=== PATIENT | male | born 1935 | race Caucasian/White ===

== ENCOUNTER 2021-11-05 11:39 | Day surgery (SDC) | payer OTHER, SELFPAY ==
--- NOTE | 2021-11-04 18:14 | W.PREOPHP ---
Assessment and Plan Assessment and plan (1) Posterior subcapsular age-related cataract, right eye: Status: Acute Assessment and plan: Assessment: Visually significant cataract of the right eye. Plan: Cataract extraction with intraocular lens implantation (2) Cortical cataract of right eye: Status: Acute Assessment and plan: Assessment: Visually significant cataract of the right eye. Plan: Cataract extraction with intraocular lens implantation (3) Nuclear sclerotic cataract of right eye: Status: Acute Assessment and plan: Assessment: Visually significant cataract of the right eye. Plan: Cataract extraction with intraocular lens implantation History of Present Illness History of Present Illness Chief Complaint: Progressive decreased vision right eye Narrative: The patient is an 86-year-old male with history of progressive decreased vision in his right eye over the past several years. He notes he feels like he is looking through a dirty windshield in his right eye. He often closes his right eyes to see clearly with the left Review of Systems All systems reviewed & are unremarkable except as noted in HPI and below PFSH All Active Problems (Updated 11/05/21 @ 12:28 by Lashaun Hale) Nuclear sclerotic cataract of right eye (Acute) Cortical cataract of right eye (Acute) Posterior subcapsular age-related cataract, right eye (Acute) Medical History (Updated 11/05/21 @ 12:28 by Lashaun Hale) BPH (benign prostatic hyperplasia) Cataract HTN (hypertension) Hx of small bowel obstruction 1999 Surgical History (Updated 11/05/21 @ 12:28 by Lashaun Hale) History of total left knee replacement (TKR) 10/08/21 Social History Smoking/Tobacco Use Status: Never Smoking risk assessment performed?: Yes Alcohol Intake: never Drug use: Never Substance use type: does not use Do you feel safe at home: Yes Do you feel safe in your relationship?: Yes Meds Allergies and Home Medications Allergies Allergy/AdvReac Type Severity Reaction Status Date / Time zolpidem Allergy Intermediate Other (See Unverified 11/05/21 12:30 Comment) Home Medications Medication Instructions Recorded Confirmed Type amlodipine 5 mg tablet 5 mg PO DAILY 11/02/21 11/05/21 History hydrochlorothiazide 25 mg tablet 25 mg PO DAILY 11/02/21 11/05/21 History lisinopril 20 mg tablet 20 mg PO DAILY 11/02/21 11/05/21 History tamsulosin 0.4 mg capsule 0.4 mg PO DIRECTED 11/02/21 11/05/21 History Exam Eyes Other: Corrected visual acuity is 2400 right eye, 20/25 left eye. Intraocular pressure is 9 OD, 15 OS. Extraocular motility is normal. Slit-lamp examination reveals a moderate nuclear and cortical cataract in the right eye with severe posterior subcapsular cataract in the right eye as well. The left eye shows mild cortical and nuclear cataract. Funduscopic examination reveals disc cupping of 0.2 OU with normal vessels, macula, peripheral retina and vitreous. Resp Auscultation: clear to auscultation bilaterally Cardio Rate: regular rate Rhythm: regular rhythm
--- NOTE | 2021-11-05 05:31 | ANES.PREOP_ITS ---
General Info Date of Service Date Performed: 11/05/21 Height: 5 ft 7 in Weight: 89.811 kg Body Mass Index (BMI): 31.0 Surgical Procedure: Operation Date: 11/05/21 13:40 Proposed Procedure Side Surgeon p Cataract Extraction with IOL Implant Right David Menezes MD Meds Allergies and Home Medications Allergies Allergy/AdvReac Type Severity Reaction Status Date / Time zolpidem Allergy Intermediate Other (See Unverified 11/05/21 12:30 Comment) Home Medication Medication Instructions Recorded amlodipine 5 mg tablet 5 mg PO DAILY 11/02/21 hydrochlorothiazide 25 mg tablet 25 mg PO DAILY 11/02/21 lisinopril 20 mg tablet 20 mg PO DAILY 11/02/21 tamsulosin 0.4 mg capsule 0.4 mg PO DIRECTED 11/02/21 Current Visit Medications: Current Medications Generic Name Dose Route Start Last Admin Trade Name Freq PRN Reason Stop Dose Admin Acetaminophen 1,000 mg 11/05/21 06:00 Acetaminophen 500 Mg Tab PO Q4H PRN PRN Miscellaneous Medication 0 ml 11/05/21 06:00 Prednisolone 1%, Moxifloxacin 0.5%, Nepafenac 0.1% 5ml Btl OD DIRECTED [facility] Miscellaneous Medication 0 ml 11/05/21 06:00 Tropicam./Phenyleph. (1/2.5%) 5 Ml Btl OD DIRECTED [facility] Tetracaine HCl 0 ml 11/05/21 06:00 Tetracaine 0.5% 4 Ml Btl OD DIRECTED [facility] PFSH Active Problems Active Problems: Problem Status Onset Code Posterior subcapsular age-related cataract, right eye H25.041 Cortical cataract of right eye H26.9 Nuclear sclerotic cataract of right eye H25.11 Medical History Medical History BPH (benign prostatic hyperplasia) Cataract HTN (hypertension) Surgical History Surgical History (Updated 11/05/21 @ 12:28 by Lashaun Hale) History of total left knee replacement (TKR) 10/08/21 Tobacco Smoking/Tobacco Use Status: Never Alcohol Alcohol Intake: never Substance Use Substance use: Never Substance use type: does not use Vital Signs and Lab Results Vital Signs Most Recent Vital Signs in EMR: Temp Pulse Resp BP Pulse Ox 36.8 C 63 16 139/82 95 09/12/22 12:32 11/05/21 12:32 11/05/21 12:32 11/05/21 12:32 11/05/21 12:32 Lab Results Blood Type / Crossmatch: No Data to Display Complete Blood Count: No Data to Display Complete Metabolic Panel: No Data to Display Liver Function Panel: No Data to Display Coagulation Panel: No Data to Display Cardiac Panel: No Data to Display Arterial Blood Gas: No Data to Display Venous Blood Gas: No Data to Display Pancreas Panel: No Data to Display Thyroid Panel: No Data to Display Infectious Disease: No Data to Display Blood Cultures: No Data to Display Toxicology Panel: No Data to Display Anesthesia Assessment and Plan Anesthesia History Personal History: No History of Anesthesia Complications Family History: No Family History of Anesthesia Complications Exercise Tolerance Exercise Tolerance: Metabolic Equivalents>4 Cardiac & Pulmonary Exam Cardiac Exam: Normal S1/S2 Heart Sounds Pulmonary Exam: Clear Bilateral Breath Sounds Implantable Cardiac Device Does patient have a Pacemaker or an ICD?: No Airway Exam Known Difficult Airway: No Mallampati Class: 2 Mouth Opening: Normal (> 3cm) Thyromental Distance: Greater than 3 cm Neck Range of Motion: Full ROM Neck Circumference: Normal Teeth Condition: Edentulous ASA Classification ASA Score: ASA 2 Emergency Case?: No NPO Status NPO Status: NPO Clears >2 hours, Solids >8 hours Anesthesia Plan Resuscitation Status: Full Code Anesthesia Technique: MAC Anesthesia Airway Planned: Natural Airway Monitors Used: Standard Monitors Preoperative Comments:: 86 yo male for cataract removal. Sig PMHx: HTN (HCTZ, lisinopril, amlodipine), never smoker/etoh.
[2021-11-05 12:32] VITALS: BP 139/82; PULSE 63; RESP 16; TEMP 36.8; O2SAT 95
[2021-11-05] MEDS: Tropicam./Phenyleph. (1/2.5%) 5 ML BTL OD ×3 (12:40→12:53)
[2021-11-05 13:10] VITALS: BMI 31.0
[2021-11-05] MEDS: Tetracaine 0.5% 4 ML BTL OD (13:13)
[2021-11-05] MEDS: Balanced Salt Soln.-PLUS 500 ML BAG (13:24)
[2021-11-05] MEDS: Duovisc Viscoelastic System EACH 1 EACH (13:24)
[2021-11-05] MEDS: Lidocaine 2% Jelly 6 ML SYR (13:25)
[2021-11-05] MEDS: Trypan Blue 0.06% 0.5 ML SYR (13:26)
[2021-11-05] MEDS: Povidone-Iodine Ophth 30 ML BTL (13:26)
[2021-11-05] MEDS: Lidocaine 1% Multi-Dose 10 ML VIAL (13:26)
[2021-11-05 13:46] VITALS: BP 126/74; PULSE 57; RESP 18; TEMP 36.7; O2SAT 94
--- NOTE | 2021-11-05 13:50 | W.PM.DSUDISC ---
Discharge Plan Disposition Patient Disposition: HOME Condition: Good Discharge Details Attending Provider: David Menezes Primary Care Provider: JENIFER NARAYANAN Home Meds and New Rx's Prescriptions: No Action amlodipine 5 mg Tablet 5 mg PO DAILY lisinopril 20 mg Tablet 20 mg PO DAILY tamsulosin 0.4 mg Capsule 0.4 mg PO DIRECTED hydrochlorothiazide 25 mg Tablet 25 mg PO DAILY Discharge Instructions Stand Alone Forms: Post-op Topical Cataract, Lisandro Menjivar (DSU) Discharge Orders Discharge Orders: Discharge Order (Routine); Ordered 11/05/21 Ordered By: David Menezes DS: Diagnosis Discharge Diagnosis (1) Posterior subcapsular age-related cataract, right eye: Status: Resolved (2) Cortical cataract of right eye: Status: Resolved (3) Nuclear sclerotic cataract of right eye: Status: Resolved
--- NOTE | 2021-11-05 13:50 | W.PM.OP ---
Date of service: 11/05/21 Time of Service: 13:50 Operative Note Operative Note DATE OF PROCEDURE: 11/05/21 PRE-OP DIAGNOSIS: Dense nuclear/cortical/posterior subcapsular cataract, right eye Poor red reflex, right eye POST-OP DIAGNOSIS: same PROCEDURE: Cataract extraction using phacoemulsification with intraocular lens implantation, right eye, using capsular staining with Vision Blue SURGEON: David Menezes ANESTHESIA TYPE: Local By Surgeon and MAC Refer to Anesthesia Record PATHOLOGY: none sent COMPLICATIONS: None Patient was transported to: same day Patient's condition: stable Implants: [employer] / [employer] Tecnis [id number] Indications: Progressive visual loss due to cataract, right eye Procedure Description: CATARACT SURGERY OPERATIVE REPORT PREOPERATIVE DIAGNOSIS: 1. Nuclear/cortical/posterior subcapsular cataract, right eye 2. Poor red reflex secondary to #1 POSTOPERATIVE DIAGNOSIS: Same OPERATION: 1. Cataract extraction using phacoemulsification with posterior chamber intraocular lens implant, right eye. 2. Capsular staining with Vision Blue IOL: IOL Finance Administrator/Model: [employer] / RUTH Tecnis [id number] IOL Power: + 20.0 diopters IOL Serial Number: [id number] Optic Diameter: 6.0mm Haptic/Overall Diameter: 13.0mm PHACO INFO: Ramiro Nukotoysurion Vision System with OZil and Active [employer]uidics Cumulative Dispersed Energy (CDE): 22.71 seconds SURGEON: David Menezes MD, YAN ANESTHESIA: Monitored Anesthesia Care (MAC), with local sub-tenon's anesthetic infiltration COMPLICATIONS: None SPECIMENS: None INDICATIONS FOR PROCEDURE: Patient is an 86-year-old gentleman with history of diminished visual acuity in his right eye secondary to the development of dense nuclear/cortical/posterior subcapsular cataract. The option of cataract surgery was offered to the patient and he felt he was symptomatic enough that he wished to proceed. PROCEDURE: The correct surgical eye was identified and marked as the right eye and the pupil was dilated in the preoperative area using mydriatics and cycloplegics. The dilated pupil size was 6.0 mm. The patient elected to proceed without oral sedation. The patient was brought to the operating room where cardiopulmonary monitoring was instituted and surgical time-out was performed, confirming the correct operative eye and IOL power. Topical anesthesia was administered and ophthalmic povidone-iodine 5% was instilled into the conjunctival fornices. Lidocaine gel was applied to the cornea and the louis-ocular area was prepped with Betadine 10% solution and draped in the usual sterile fashion for intraocular surgery, including an aperture drape. A Tegaderm transparent film dressing was cut in half and used to cover the lashes and lid margins. Care was taken to sequester the lashes and lid margins under the Tegaderm dressing. A lid speculum was placed between the lids of the operative eye and the Raim[employer] LuxOR Revalia operating microscope was maneuvered into position. Hosea scissors were then used to make a conjunctival buttonhole approximately 6mm posterior to the limbus in the inferonasal quadrant. Blunt dissection was carried out to expose bare sclera, and a blunt-tipped sub-tenon?s anesthesia cannula was introduced and passed posteriorly along the globe where non-preserved plain lidocaine was injected into posterior sub-Tenon?s space. A sideport knife was used to make a paracentesis port inferotemporally. Intraocular phenylephrine/lidocaine was injected into the anterior chamber. Air was injected into the anterior chamber, followed by Vision Blue, which was painted over the anterior capsule and then irrigated out with BSS. The anterior chamber was filled with viscoelastic. A keratome knife was used to create a 2-plane near clear corneal tunnel extending approximately 2 mm into clear cornea superior temporally.. A flap was raised on the anterior capsule and capsulorhexis forceps were used to complete a continuous curvilinear capsulorhexis of 5.0 Difference when anesthesia perceptually mm. Balanced salt solution was then used to perform cortical cleaving hydrodissection and nuclear hydrodelineation until the lens could be freely rotated within the capsular bag. The lens nucleus was then disassembled and removed within the capsular bag and iris plane using phacoemulsification. Nuclear splitters were used to duct layer helper in cracking the dense nucleus into 2 halves. Residual cortical material was removed using the I/A handpiece. The posterior capsule was carefully polished to remove as much residual lens epithelial cells as safely possible. The capsular bag was then inflated and the anterior chamber deepened with viscoelastic. The lens implant described above was inserted into the capsular bag using the RUTH [place] Injector. A Kuglen hook was used to dial the IOL into position. Residual viscoelastic was then removed first from posterior to the IOL, then from the anterior chamber using the I/A handpiece. The lens implant was noted to center nicely within the capsular bag. The incisions were stromally hydrated, and the anterior chamber was reformed using BSS. Then 0.5cc of moxifloxacin 1.0mg/ml were injected into the capsular bag and anterior chamber. The incisions were checked with a Weck spear and found to be secure. Several drops of ophthalmic povidone-iodine 5% were then applied to the eye followed by two drops of Imprimis combination prednisolone/moxifloxacin/nepafenac solution. The drapes were removed and a clear plastic protective eye shield was placed over the eye. The patient was then returned to Same Day Surgery in stable condition.
--- NOTE | 2021-11-05 14:07 | W.ANESPOSTOP ---
Postoperative Evaluation Date, Time and Location Date Performed: 11/05/21 Time Performed: 14:07 Patient Location: Day Surgery Unit Vital Signs Most Recent Imported Vital Signs: Most Recent Vital Signs Temp Pulse Resp BP Pulse Ox 36.7 C 57 L 18 126/74 94 11/05/21 13:46 11/05/21 13:46 11/05/21 13:46 11/05/21 13:46 11/05/21 13:46 Pain Score Most Recent Pain Score: Most Recent Pain Score Pain Level 0 11/05/21 13:46 Assessment Mental Status: Awake (Alert & Oriented to Patient Baseline) Airway and Respiratory Function: Patent airway with normal (patient baseline) respiratory exam Cardiovascular Function: Hemodynamically Stable Hydration Status: Adequately Hydrated Nausea & Vomiting: No Nausea or Vomiting Pain: Pt. Denies Any Pain Peripheral Nerve Block: Patient did not receive a nerve block
== END 2021-11-05 14:16 | disposition home or self-care (01) ==
PROVIDERS: PCP Internal Medicine; Visit Provider Ophthalmology
PROC: (CPT 66982; principal; 2021-11-05 13:30)
DX: H25.811 Combined forms of age-related cataract, right eye (principal); H26.8 Other specified cataract
CPT/HCPCS: 66982; V2632